=== PATIENT | female | born 1950 | race Caucasian/White ===

== ENCOUNTER 2020-02-17 12:58 | Outpatient (CLI) | payer MEDICARE, SELFPAY | END 2020-02-17 12:59 | disposition home or self-care (01) | PROVIDERS: PCP Family Medicine Sports Medicine; Visit Provider Otolaryngology | DX: H69.80 Other specified disorders of Eustachian tube, unspecified ear (principal); H93.8X9 Other specified disorders of ear, unspecified ear | CPT/HCPCS: 92557; 92567 ==

== ENCOUNTER 2020-03-26 14:00 | Outpatient (CLI) | payer MEDICARE, SELFPAY ==
--- NOTE | ~2020-03-26 | DEXA_ITS ---
Bone Density Report Name: Lizzette Adamson Age: 70 Sex: Female Ethnicity: White Date of : 1950 Indication: osteopenia; monitoring treatment; parental hip fracture; height loss; cancer; Referring Provider: SERGIO LAGOS Study: Bone densitometry was performed. Exam Date: March 26, 2020 Accession number: [id number] Bone Density: Region BMD T-score Z-score Classification AP Spine (L1-L4) 0.911 -1.2 0.9 Osteopenia Femoral Neck (Left) 0.699 -1.4 0.5 Osteopenia Total Hip (Left) 0.772 -1.4 0.1 Osteopenia Total Hip Bilateral Avg 0.810 -1.1 0.4 Osteopenia Femoral Neck (Right) 0.662 -1.7 0.1 Osteopenia Total Hip (Right) 0.847 -0.8 0.7 Normal World Health Organization criteria for BMD impression classify patients as: Normal (T-score at or above -1.0), Osteopenia (T-score between -1.0 and -2.5), or Osteoporosis (T-score at or below -2.5). 10-year Fracture Risk: FRAX not reported because: Treated for osteoporosis Previous Exams: Region Exam Age BMD T-score BMD Change BMD Change Date g/cm2 vs Baseline vs Previous AP Spine(L1-L4) 03/26/2020 70 0.911 -1.2 0.029(3.3%)# -0.022(-2.4%) 03/08/2018 68 0.933 -1.0 0.052(5.9%)# 0.031(3.5%)* 02/22/2016 66 0.902 -1.3 0.020(2.3%)# 0.040(4.7%)# 02/17/2013 63 0.861 -1.7 -0.020(-2.3%)# -0.020(-2.3%)# 02/07/2011 61 0.881 -1.5 Total Hip(Left) 03/26/2020 70 0.772 -1.4 0.002(0.2%)# -0.005(-0.6%) 03/08/2018 68 0.777 -1.4 0.007(0.9%)# 0.004(0.5%) 02/22/2016 66 0.773 -1.4 0.003(0.3%)# 0.003(0.4%)# 02/17/2013 63 0.770 -1.4 -0.001(-0.1%)# -0.001(-0.1%)# 02/07/2011 61 0.771 -1.4 Total Hip(Right) 03/26/2020 70 0.847 -0.8 0.061(7.7%)# -0.036(-4.1%)* 03/08/2018 68 0.883 -0.5 0.097(12.3%)# 0.060(7.3%)* 02/22/2016 66 0.823 -1.0 0.037(4.7%)# -0.018(-2.2%)# 02/17/2013 63 0.841 -0.8 0.055(7.0%)# 0.055(7.0%)# 02/07/2011 61 0.786 -1.3 *Denotes significance at 95% confidence level, LSC for AP Spine = 0.022 g/cm2, LSC for Total Hip = 0.027 g/cm2 Clinical Information Provided by Patient: Parent has had a hip fracture Is being treated for osteoporosis Has used the following medications: Vitamin D, Calcium Has the following medical conditions: Cancer Patient maximum height was 62 Menopause Age: 52 Drinks caffeinated beverages Onset of menses at age 15 Number of children 2 Impression: The patient has low bon
--- NOTE | ~2020-03-26 | MM_ITS ---
EXAMINATION: MM screening mammo BI HISTORY: Screening mammogram TECHNIQUE: Craniocaudal and mediolateral oblique 3-D tomosynthesis images were obtained and synthetic 2-D images were generated. CAD analysis was submitted and interpreted. COMPARISON: 03/15/2019 bilateral diagnostic digital mammogram and limited right breast ultrasound 03/08/2018 bilateral digital screening mammogram 04/03/2015, 03/30/2014, 03/23/2012 bilateral digital screening mammogram examinations BREAST PARENCHYMAL COMPOSITION: The breasts are heterogeneously dense, which may obscure small masses . FINDINGS: Stable fibroglandular asymmetry. Some asymmetry noted on MLO view in the mid to lower right breast appears identical to 04/03/2015. There is no evidence of suspicious mass, calcification, or in terval architectural distortion to suggest malignancy in either breast. There has been no suspicious interval change. IMPRESSION: 1. No mammographic evidence of malignancy. 2. Recommend routine screening mammography in one year. BI-RADS Category 2: Benign finding(s). Reviewed, dictated and finalized at location A. 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
== END 2020-03-26 14:01 | disposition home or self-care (01) ==
LOC: ANHIMG 14:03
PROVIDERS: PCP Family Medicine Sports Medicine; Visit Provider Obstetrics & Gynecology
DX: Z12.31 Encounter for screening mammogram for malignant neoplasm of breast (principal); Z78.0 Asymptomatic menopausal state; M85.88 Other specified disorders of bone density and structure, other site; M85.852 Other specified disorders of bone density and structure, left thigh; M85.851 Other specified disorders of bone density and structure, right thigh
CPT/HCPCS: 77067; 77080

== ENCOUNTER 2021-05-06 14:35 | Outpatient (CLI) | payer MEDICARE, SELFPAY ==
--- NOTE | ~2021-05-06 | MM_ITS ---
EXAMINATION: MM screening valery BI w jacqueline HISTORY: Screening TECHNIQUE: Craniocaudal and mediolateral oblique 3-D tomosynthesis images were obtained and synthetic 2-D images were generated. CAD analysis was submitted and interpreted. COMPARISON: Comparison to multiple prior studies sequentially, with oldest reviewed study dated 07/2013. BREAST PARENCHYMAL COMPOSITION: The breasts are heterogenously dense, which may obscure small masses FINDINGS: The left breast is stable without evidence for malignancy. There is subtle architectural di stortion in the lower aspect of the right breast on MLO view. IMPRESSION: 1. Architectural distortion of the right breast inferiorly. 2. Additional mammographic views and possible breast ultrasound are recommended. BI-RADS Category 0: Incomplete: Needs additional imaging evaluation. Reviewed, dictated and finalized at location A. 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 Architectural distortion of the right breast inferiorly. 2. Additional mammographic views and possible breast ultrasound are recommended . BI-RADS Category 0: Incomplete: Needs additional imaging evaluation.
== END 2021-05-06 14:36 | disposition home or self-care (01) ==
LOC: ANHIMG 14:38
PROVIDERS: PCP Family Medicine Sports Medicine; Visit Provider Obstetrics & Gynecology
DX: Z12.31 Encounter for screening mammogram for malignant neoplasm of breast (principal); R92.8 Other abnormal and inconclusive findings on diagnostic imaging of breast
CPT/HCPCS: 77063; 77067

== ENCOUNTER 2021-05-23 11:18 | Outpatient (CLI) | payer MEDICARE, SELFPAY ==
--- NOTE | ~2021-05-23 | MM_ITS ---
EXAMINATION: MM diagnostic valery RT w jacqueline HISTORY: Possible right breast architectural distortion TECHNIQUE: Additional 3-D tomosynthesis images of the right breast were performed and synthetic 2-D i mages were generated. CAD analysis was submitted and interpreted. COMPARISON: 05/06/2021 03/26/2020, 03/15/2019 03/08/2019 FINDINGS: There is a return to baseline fibroglandular appearance with spot compression of the right breast in the area questioned on screening mammogram. IMPRESSION: 1. No mammographic evidence of malignancy. 2. Recommend routine screening mammography in one year. BI-RADS Category 1: Negative Reviewed, dictated and finalized at location A. 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
== END 2021-05-23 11:19 | disposition home or self-care (01) ==
PROVIDERS: PCP Family Medicine Sports Medicine; Visit Provider Obstetrics & Gynecology
DX: R92.8 Other abnormal and inconclusive findings on diagnostic imaging of breast (principal)
CPT/HCPCS: 77061; 77065; G0279

== ENCOUNTER 2022-07-24 08:51 | Outpatient (CLI) | payer MEDICARE, SELFPAY ==
--- NOTE | ~2022-07-24 | MM_ITS ---
EXAMINATION: MM screening valery BI w jacqueline HISTORY: Screening TECHNIQUE: Craniocaudal and mediolateral oblique 3-D tomosynthesis images were obtained and synthetic 2-D images were generated. CAD analysis was submitted and interpreted. COMPARISON: Comparison to multiple prior studies sequentially, with oldest reviewed study dated 02/25. BREAST PARENCHYMAL COMPOSITION: The breasts are heterogeneously dense, which may obscure small masses FINDINGS: There is no evidence of suspicious mass, calcification, or architectural distortion to sugg est malignancy in either breast. There has been no suspicious interval change. IMPRESSION: 1. No mammographic evidence of malignancy. 2. Recommend routine screening mammography in one year. BI-RADS Category 1: Negative Reviewed, dictated and finalized at location A.
--- NOTE | ~2022-07-24 | DEXA_ITS ---
Bone Density Report Name: MYNOR MORSE Age: 72 Sex: Female Ethnicity: White Date of : 1950 Indication: postmenopausal; screening for osteoporosis; parental hip fracture; height loss; cancer; Referring Provider: SERGIO LAGOS Study: Bone densitometry was performed. Exam Date: July 24, 2022 Accession number: [id number] Bone Density: Region BMD T-score Z-score Classification AP Spine(L1-L4) 0.946 -0.9 1.3 Normal Femoral Neck (Left) 0.674 -1.6 0.4 Osteopenia Total Hip (Left) 0.762 -1.5 0.2 Osteopenia Femoral Neck (Right) 0.676 -1.6 0.4 Osteopenia Total Hip (Right) 0.836 -0.9 0.8 Normal Total Hip Mean 0.799 -1.2 0.5 Osteopenia World Health Organization criteria for BMD impression classify patients as: Normal (T-score at or above -1.0), Osteopenia (T-score between -1.0 and -2.5), or Osteoporosis (T-score at or below -2.5). 10-year Fracture Risk(1): Major Osteoporotic Fracture 17% Hip Fracture 5.5% Reported Risk Factors: [place] (), Neck BMD=0.674, BMI=25.0, parental fracture (1) FRAX(R) Version 3.08. Fracture probability calculated for an untreated patient. Fracture probability may be lower if the patient has received treatment. Clinical Information Provided by Patient: Parent has had a hip fracture Has used the following medications: Calcium Has the following medical conditions: Cancer Patient maximum height was 62 Menopause Age: 52 Drinks caffeinated beverages Onset of menses at age 17 Number of children 2 Impression: The patient has low bone mass, based on the Left Femoral Neck T-score. The patient has an estimated ten-year risk of hip fracture of 5.5% and an estimated ten-year risk of major fracture of 17%, based on the WHO FRAX algorithm. The patient has risk factors, including: parental hip fracture. Discussion: BONE DENSITY IS LOW AT ONE OR MORE SKELETAL SITES. THE PATIENT'S BMD AND CLINICAL RISK FACTORS CONTRIBUTE TO THIS PATIENT'S INCREASED RISK OF FRACTURE. This patient's lowest T-score is low at one or more skeletal sites. It meets the World Health Organization's (WHO) criteria for ?low bone mass? (T-score between -1.0 and -2.5). The patient's 10-year risk of hip fracture as calculated by FRAX exceeds the threshold where pharmacological therapy is recommended by the National Osteoporosis Foundation (NOF). However, all treatment decisions require clinical judgment and consideration of individual patient factors, including patient preferences, comorbidities, previous drug use, risk factors not captured in the FRAX model (e.g., frailty, falls, vitamin D deficiency, increased bone turnover, interval significant decline in bone density) and possible under or overestimation of fracture risk by FRAX. The patient should follow a healthful lifestyle (good
== END 2022-07-24 08:52 | disposition home or self-care (01) ==
PROVIDERS: PCP Family Medicine Sports Medicine; Visit Provider Obstetrics & Gynecology
DX: Z12.31 Encounter for screening mammogram for malignant neoplasm of breast (principal); Z78.0 Asymptomatic menopausal state; M85.852 Other specified disorders of bone density and structure, left thigh; M85.851 Other specified disorders of bone density and structure, right thigh
CPT/HCPCS: 77063; 77067; 77080

== ENCOUNTER 2023-01-23 13:10 | Observation (INO) | payer MEDICARE, SELFPAY ==
[2023-01-23] VITALS (22 sets, daily range): BP systolic 134–156; BP diastolic 60–87; PULSE 59–70; RESP 12–23; TEMP 36.5–36.9; O2SAT 97–100; BMI 26.6
--- NOTE | ~2023-01-23 | CT_ITS ---
EXAMINATION: CTA BRAIN/CAROTID DATE: 01/23/2023 16:02 INDICATION: Headache. Left arm weakness. Aphasia. TECHNIQUE: Computed tomographic angiography (CTA) of the head and neck was performed with 100 mL Omni paque-350 intravenous contrast. Multiplanar reconstructions and maximum intensity projection 3D-recon structions of the carotid arteries and of the intracranial arteries were created by the technologist on a separate workstation. Precontrast CT of the head was also obtained. Automated exposure control and iterative reconstruction technique were employed.The dose-length product was 1901.25 mGy-cm. COMPARISON: None. FINDINGS: Carotid arteries: Visualized portion of the aortic arch and great vessels arising from the arch are normal in caliber w ith no evident atherosclerotic plaque or dissection. There is 0% stenosis of the right carotid bulb r elative to normal distal artery lumen diameter (NASCET criteria). There is 0% stenosis of the left ca rotid bulb relative to normal distal artery lumen diameter. Bilateral vertebral arteries are codomina nt and patent throughout. Mild dependent atelectasis in the visualized upper lungs. Visualized cervic al soft tissues and superior mediastinum are normal. Moderate to severe cervical spondylosis with mil d reversal of the normal cervical lordosis. Head: No acute intracranial hemorrhage, acute infarction or abnormal extra axial fluid collection. There ar e symmetric mild enlargement of the left and right lateral and third ventricles which is disproportio jose alejandro to the normal sized fourth ventricle and with only mild increased prominence of the sylvian fiss ures which could be related to central predominant atrophy but could also be seen with normal pressur e hydrocephalus. The cerebral aqueduct of Sylvius remains patent. Basal cisterns are patent. No mass/ mass effect. There is mild scattered white matter hypoattenuation consistent with chronic small vesse l ischemic disease. Changes of left intraocular lens replacement. Mild mucosal thickening bilateral e thmoid sinuses. The bilateral mastoid air cells and middle ear cavities are clear. Intracranial arteries Minimal atherosclerotic plaque without hemodynamically significant stenosis at the bilateral carotid siphons. There is no hemodynamically significant stenosis in the vertebral, basilar and internal becerril tid arteries. Vertebral arteries are codominant. There are no aneurysms identified. Both A1 and P1 s egments are patent. Cerebral arterial arborization appears symmetric. IMPRESSION: 1. No evident atherosclerotic plaque with 0% stenosis of the right and left carotid bulbs relative to normal distal artery lumen diameter (NASCET criteria). 2. Minimal atherosclerotic plaque at the bilateral carotid siphons. Otherwise unremarkable cerebral C T angiogram with no mammographic significant stenosis or aneurysm. 3. Disproportionate increased size of the third and left and right lateral ventricles which could be related to central predominant atrophy but could also be seen in setting of normal pressure hydroceph alus (NPH: clinical triad ataxia/gait disturbance, dementia, urinary incontinence). 4. Nonspecific mild white matter hypoattenuation consistent with chronic small vessel ischemic diseas e. Reviewed, dictated and finalized at location A. IMPRESSION: 1. No evident atherosclerotic plaque with 0% stenosis of the right and left car otid bulbs relative to normal distal artery lumen diameter (NASCET criteria). 2. Minimal atherosclerotic plaque at the bilateral carotid siphons. Otherwise u nremarkable cerebral CT angiogram with no mammographic significant stenosis or aneurysm. 3. Disproportionate increased size of the third and left and right lateral vent ricles which could be related to central predominant atrop
--- NOTE | ~2023-01-23 | MR_ITS ---
EXAMINATION: MR brain/brain stem wo/w con DATE: 01/24/2023 08:48 INDICATION: TIA TECHNIQUE: Magnetic resonance imaging (MRI) of the brain and brainstem was performed without and with 12 mL MultiHance intravenous contrast. Sequences included sagittal and axial T1-weighted SE, axial d iffusion-weighted FS EPI ASSET, axial T2*-weighted GRE, axial T2-weighted FLAIR Propeller, and axial T2-weighted Propeller. Postcontrast axial and coronal T1-weighted SE was obtained. Apparent diffusion coefficient (ADC) maps were created. COMPARISON: CTA brain carotid 01/23/2023. FINDINGS: No abnormal restricted diffusion to suggest acute ischemic infarct. No MRI evidence of hemorrhage or extra-axial collection. No suspicious foci of susceptibility to suggest prior intraparenchymal hemorr shivani. Scattered foci of white matter hyperintensity, likely representing mild small vessel ischemic d isease. Prominent lateral and third ventricles. The basilar cisterns are patent. Flow voids are prese rved. Ethmoid mucosal thickening, the remaining aerated spaces are within normal limits. Left lens re placement. Globes and orbital contents are otherwise within normal limits. No abnormal enhancing lesi on IMPRESSION: No MR evidence of acute infarct. Prominent lateral and third ventricles, may be secondary to central predominant atrophy or normal pre ssure hydrocephalus, depending on the clinical context. Reviewed, dictated and finalized at location K. IMPRESSION: No MR evidence of acute infarct. Prominent lateral and third ventricles, may be secondary to central predominant atrophy or normal pressure hydrocephalus, depending on the clinical context.
--- NOTE | 2023-01-23 14:47 | ECG_ITS ---
Measurements Intervals [place] Rate: 59 P: 57 [place]: 166 QRS: -34 QRSD: 88 T: 141 QT: 444 QTc: 441 Interpretive Statements SINUS BRADYCARDIA LEFT AXIS DEVIATION RSR' IN V1 OR V2, PROBABLY NORMAL VARIANT BORDERLINE R WAVE PROGRESSION, ANTERIOR LEADS ST-T WAVE ABNORMALITY IN ANT/HIGH LAT LEADS- CONSIDER ISCHEMIA BASELINE ARTIFACT- V5-V6 ABNORMAL ECG NO PREVIOUS ECG AVAILABLE FOR COMPARISON Electronically Signed On 01-23-2023 15:21:34 CDT by Parish Cohen D.O.
--- NOTE | 2023-01-23 15:02 | ED.HA ---
HPI - Headache General Chief Complaint: Headache Stated Complaint: headache Time Seen by Provider: 01/23/23 14:13 History of Present Illness HPI Narrative: Patient is a 72-year-old female with a history of hypertension, hypothyroidism presenting with left-sided weakness. Patient states that she has had a persistent headache for the last week. She has been using Zyrtec and Aleve with intermittent relief. States that this morning she had an episode where her left hand did not seem to be working. States that she kept dropping things. Her states that she seemed confused at this time and started stuttering. States that she was struggling to get her words out. This episode lasted 15 to 20 minutes before resolving. Currently, she complains of a persistent frontal headache but denies further complaints. No recent fevers, vision changes, vertigo, chest pain, shortness of breath, abdominal pain, nausea or vomiting, diarrhea, dysuria, leg swelling. Related Data Home Medications Medication Instructions Recorded Confirmed citalopram 20 mg tablet 20 mg PO DAILY 03/10/19 01/23/23 multivitamin (Daily Multi-Vitamin 1 tablet PO DAILY 03/10/19 01/23/23 tablet) atenolol 25 mg tablet 12.5 mg PO DAILY 02/14/20 01/23/23 ezetimibe 10 mg tablet 10 mg PO DAILY 02/18/21 01/23/23 levothyroxine 25 mcg capsule 50 mcg PO DAILY 02/18/21 01/23/23 calcium carb 300 mg-D3 20 mcg-mag 1 tablet PO DAILY 05/20/22 01/23/23 ox 25 mg-copy messenger 0.5 [id number] tablet (Caltrate-D3 Plus Minerals) diclofenac sodium 75 mg 75 mg PO BID 01/23/23 01/23/23 tablet,delayed release Allergies Allergy/AdvReac Type Severity Reaction Status Date / Time No Known Allergies Allergy Verified 05/20/22 08:51 Review of Systems Review of Systems: All systems reviewed & are unremarkable except as noted in HPI and below PMFSH Past Medical History Medical History (Updated 01/29/23 @ 00:23 by Eugenia Cordova MD) Anxiety Lamin disease Depression Hypertension Rectal cancer Skin cancer Stroke-like symptoms TIA (transient ischemic attack) Surgical History Surgical History History of delivery x 2 Family History Family History Grandparent Carcinoma of colon Social History Social History Smoking status: Never smoker Second hand tobacco smoke exposure: No Alcohol intake: current Drinks per week: 2 Substance use: never Substance use type: does not use Lack of Transportation: No Lack of Food: Never True Current Housing: I Have Housing Concerned About Future Housing: No Difficulty Paying Gas/Electric Bills: No Difficulty Paying for Meds: No Currently Unemployed: No Education: Associate Degree Difficulty w/ Childcare or Family Care: No Spiritual care concerns: No Exam Narrative: GENERAL: Well-appearing and in no acute distress. HEAD: Normocephalic, atraumatic. EYES: PERRLA and EOMI. ENT: Nares clear, no rhinorrhea or epistaxis. Mucous membranes moist. NECK: Supple. CHEST: Clear to auscultation. No respiratory distress. HEART: Regular rate and rhythm ABDOMEN: Soft, nontender, nondistended EXTREMITIES: Normal range of motion. No edema. SKIN: Warm, dry, no rash. NEURO: Alert and oriented x3. 5 out of 5 strength in all extremities, no sensory deficits, no facial droop, no aphasia or dysarthria, no pronator drift, [id number] intact PSYCH: Normal mood and affect. Course Vital Signs Vital signs: Vital Signs Temperature 97.7 F 01/23/23 13:16 Pulse Rate 68 01/23/23 13:16 Respiratory Rate 17 01/23/23 13:16 Blood Pressure 154/81 H 01/23/23 13:16 Pulse Oximetry 97 01/23/23 13:16 Oxygen Delivery Room Air 01/23/23 13:16 Temperature 96.8 F L 01/25/23 08:00 Pulse Rate 65 01/25/23 12:01 Respiratory Rate 14
[2023-01-23 15:11] LABS: Basophils Percent Auto 0.7 % (0.2-1.2); Eosinophils Absolute Auto 0.2 K/mm3 (0-0.3); Eosinophils Percent Auto 2.4 % (0-4.4); Hematocrit 42.7 % (37.0-47.0); Hemoglobin 14.2 g/dL (12.0-15.0); Immature Granulocyte Absolute 0.01 K/mm3 (0.00-0.031); Immature Granulocyte Percent A 0.2 % (0-0.5); Lymphocytes Absolute Auto 1.17 K/mm3 (0.9-3.2); Mean Corpuscular HGB Conc 33.3 g/dl (32-36); Mean Corpuscular Hemoglobin 30.9 pg (26-34); Mean Platelet Volume 10.6 fl (7.4-10.4); Monocytes Absolute Auto 0.5 K/mm3 (0.1-0.6); Monocytes Percent Auto 8.8 % (2.6-8.5); Neutrophils Absolute Auto 4.2 K/mm3 (1.3-6.7); Neutrophils Percent Auto 68.9 % (45.5-73.1); Platelet Count Result 202 k/mm3 (150-375); Red Blood Count 4.59 M/mm3 (4.2-5.4); Red Cell Distribution Width 13.8 % (11.5-14.5); White Blood Count 6.2 K/mm3 (4.5-10.0)
[2023-01-23 15:41] LABS: Alanine Aminotransferase 33 U/L (6-35); Albumin Level 4.5 g/dL (3.5-5.1); Alkaline Phosphatase 58 U/L (38-126); Anion Gap 6 mmol/L (8-16); Aspartate Amino Transferase 30 U/L (14-36); Bilirubin,Total 0.8 mg/dL (0.2-1.3); Blood Urea Nitrogen 15 mg/dL (7-17); Calcium 9.5 mg/dL (8.4-10.2); Carbon Dioxide 30 mmol/L (22-30); Chloride 101 mmol/L (98-107); Estimated CRCL calculation 42 ml/min; Estimated Glomerular Filt Rate > 60; Glucose 121 mg/dL (65-110); Potassium 3.8 mmol/L (3.4-5.0); Sodium 137 mmol/L (137-145)
[2023-01-23] MEDS: KETOROLAC 15 MG/ML VIAL (*BKC) IV PUSH (15:44)
[2023-01-23] MEDS: diphenhydrAMINE HCl INJ 50 MG/ML VIAL 25 MG IV PUSH (15:44)
[2023-01-23] MEDS: PROCHLORPERAZINE EDISYLATE 10 MG/2 ML VIAL IV PUSH (15:44)
--- NOTE | 2023-01-23 15:44 | ECG_ITS ---
Measurements Intervals [place] Rate: 60 P: 51 MA: 167 QRS: -35 QRSD: 104 T: 145 QT: 406 QTc: 408 Interpretive Statements SINUS RHYTHM LEFT AXIS DEVIATION INCOMPLETE RIGHT BUNDLE BRANCH BLOCK ST-T WAVE ABNORMALITY IN ANTEROLAT/HIGH LAT LEADS- CONSIDER ISCHEMIA BASELINE ARTIFACT- I, III, AVR, AVL, AVF ABNORMAL ECG COMPARED TO ECG 01/23/2023 15:16:41 SINUS RHYTHM NOW PRESENT Electronically Signed On 01-23-2023 16:10:42 CDT by Parish Cohen D.O.
[2023-01-23] MEDS: SODIUM CHLORIDE 0.9% IV 1,000 ML 999 ML IV CONT (15:45)
[2023-01-23 15:52] LABS: Appearance Urine Clear (Clear); Bilirubin Urine Negative (Negative); Blood Urine Negative (Negative); Color Urine Yellow (Yellow); Glucose Urine UA Negative (Negative); Ketones Urine Negative (Negative); Leukocyte Esterase Ur Negative LEU/UL (Negative); Nitrate Urine Negative (Negative); Protein Urine Negative (Negative); Specific Grav Ur 1.009 (1.001-1.035); Urobilinogen Urine 0.2 mg/dL (<2.0)
[2023-01-23 16:12] LABS: Add Urine Microscopic? NO
[2023-01-23 16:28] LABS: Influenza A QL RT-PCR Negative (Negative); Influenza B QL RT-PCR Negative (Negative); SARS-CoV-2 RNA PCR Negative (Negative)
--- NOTE | 2023-01-23 23:33 | PM.IMHP ---
H&P: HPI History of Present Illness Date/Time: 01/23/23 23:33 Chief Complaint: Patient brought to the ER for evaluation of left-sided weakness which has now resolved Narrative: She is a pleasant 72 years old white female with chronic medical issues who is complaining of persistent headaches for the last week. She has been using Zyrtec and Aleve with some improvement. She had an episode this morning where her left hand did not seem to be working and she kept dropping things. She also appeared confused, started stuttering and was struggling to get her words out. This episode lasted 15-20 minutes and resolved on its own. EMS was called and patient was brought to the ER for evaluation. Workup was done which ruled out acute stroke. She is being admitted under observation for Neurology evaluation for her stroke-like symptoms /TIA. Review of Systems Review of Systems: she denies any chest pain, palpitations, fever rigor chills, nausea vomiting, abdominal pain or falls All systems reviewed & are unremarkable except as noted in HPI and below PMFSH Past Medical History Medical History (Updated 01/24/23 @ 00:55 by Venkata De Los Santos MD) Anxiety Lamin disease Depression Hypertension Rectal cancer Skin cancer Stroke-like symptoms TIA (transient ischemic attack) Surgical History Surgical History History of delivery x 2 Family History Family History Grandparent Carcinoma of colon Social History Social History Smoking status: Never smoker Second hand tobacco smoke exposure: No Alcohol intake: current Drinks per week: 2 Substance use: never Substance use type: does not use Lack of Transportation: No Lack of Food: Never True Current Housing: I Have Housing Concerned About Future Housing: No Difficulty Paying Gas/Electric Bills: No Difficulty Paying for Meds: No Currently Unemployed: No Education: Associate Degree Difficulty w/ Childcare or Family Care: No Spiritual care concerns: No Meds Home Medications and Allergies Home Medications Medication Instructions Recorded Confirmed Type citalopram 20 mg tablet 20 mg PO DAILY 03/10/19 01/23/23 History multivitamin (Daily Multi-Vitamin 1 tablet PO DAILY 03/10/19 01/23/23 History tablet) atenolol 25 mg tablet 12.5 mg PO DAILY 02/14/20 01/23/23 History ezetimibe 10 mg tablet 10 mg PO DAILY 02/18/21 01/23/23 History levothyroxine 25 mcg capsule 50 mcg PO DAILY 02/18/21 01/23/23 History calcium carb 300 mg-D3 20 mcg-mag 1 tablet PO DAILY 05/20/22 01/23/23 History ox 25 mg-copy messenger 0.5 [id number] tablet (Caltrate-D3 Plus Minerals) diclofenac sodium 75 mg 75 mg PO BID 01/23/23 01/23/23 History tablet,delayed release Allergies Allergy/AdvReac Type Severity Reaction Status Date / Time No Known Allergies Allergy Verified 05/20/22 08:51 Vital Signs Vital Signs - 24 hr 01/23/23 13:16 01/23/23 13:42 01/23/23 13:46 Temperature 36.5 C Pulse Rate 68 66 63 Respiratory Rate 17 21 H 23 H Blood Pressure 154/81 H 147/78 H Pulse Oximetry 97 97 98 Oxygen Delivery Room Air 01/23/23 13:51 01/23/23 14:00 01/23/23 14:01 Temperature Pulse Rate 65 63 64 Respiratory Rate 16 18 20 Blood Pressure 143/66 H 143/76 H Pulse Oximetry 98 Oxygen Delivery 01/23/23 14:15 01/23/23 14:16 01/23/23 14:30 Temperature Pulse Rate 65 64 62 Respiratory Rate 20 18 17 Blood Pressure 144/80 H 146/81 H Pulse Oximetry Oxygen Delivery 01/23/23 14:31 01/23/23 14:41 01/23/23 14:45 Temperature Pulse Rate 63 63 63 Respiratory Rate 19 13 20 Blood Pressure 146/81 H Pulse Oximetry 99 Oxygen Delivery 01/23/23 15:00 01/23/23 15:01 01/23/23 15:15 Temperature Pulse Rate 63 63 59 L Respiratory Rate 18 20 20 Blood Pressure 134/87 149/80 H Pul
[2023-01-24] VITALS (10 sets, daily range): BP systolic 127–152; BP diastolic 59–71; PULSE 54–74; RESP 12–20; TEMP 36.1–37; O2SAT 94–98
--- NOTE | 2023-01-24 | ECHO_ITS ---
Patient Info Name: Lizzette Adamson Age: 72 years : 1950 Gender: Female Ht: 61 in Wt: 130 lbs BSA: 1.60 m2 HR: 62 bpm Heart Rhythm: Sinus Rhythm Technical Quality: Fair Exam Date: 01/24/2023 2:28 PM Exam Location: [facility] Patient Status: Inpatient Admit Date: 01/23/2023 Staff Ordering Physician: Magno Xie MD Photo Retoucher: Dnonie Gerardo RDCS Attending Provider: Trudy Squires MD Exam Type: CA echo dop bubble study w con Study Info Indications - cva Complete two-dimentional, color flow and Doppler transthoracic echocardiogram is performed with agitated saline and with contrast to opacify the left ventricle and to improve the delineation of the left ventricle endocardial borders. Contrast/Agitated Saline Contrast/Ag. Saline: Definity Amount: 3.00 ml Summary 1. Technically difficult exam, definity contrast utilized. 2. Normal left ventricular size and systolic function. 3. Mildly sclerotic aortic valve which is not stenotic. 4. Saline contrast injection performed with poor visualization/no ability to comment on presence or absence of shunt. Left Ventricle Left ventricular chamber dimension is normal. Left ventricular systolic function is normal, estimated at 65-70%. The left ventricular diastolic function is grade I diastolic dysfunction. Right Ventricle Right ventricular chamber dimension is normal. Left Atria Left atrial chamber dimension is normal. Right Atria Right atrial chamber dimension is normal. Atrial Septum Intact interatrial septum visualized by agitated saline imaging. Aortic Valve The aortic valve is trileaflet. There is mild aortic valve sclerosis. Pulmonic Valve The pulmonic valve is not well visualized. Mitral Valve The mitral valve has normal leaflets. Tricuspid Valve The tricuspid valve leaflets are normal. Pericardium/Pleural The pericardium appears normal. Aorta The aortic root size at the sinus of Valsalva is normal. Left Ventricular Outflow Tract Name Value Normal LVOT 2D LVOT Diameter 1.9 cm LVOT Doppler LVOT Peak Gradient 4 mmHg LVOT Mean Gradient 2 mmHg LVOT VTI 20 cm LVOT VTI/AV VTI Ratio 0.6 LVOT Stroke Volume 57 ml LVOT CO 3.4 l/min LVOT CI 2.1 l/min/m2 Pulmonic Valve Name Value Normal RVOT Doppler RVOT Peak Gradient 2 mmHg PV Doppler PV Peak Gradient 2 mmHg Mitral Valve Name Value Normal MV Doppler
[2023-01-24] MEDS: LEVOTHYROXINE SODIUM 50 MCG TABLET PO (06:12)
[2023-01-24] MEDS: SODIUM CHLORIDE 0.9% IV 1,000 ML 75 ML IV CONT (06:13)
[2023-01-24 06:35] LABS: Basophils Percent Auto 0.7 % (0.2-1.2); Eosinophils Absolute Auto 0.2 K/mm3 (0-0.3); Eosinophils Percent Auto 3.7 % (0-4.4); Hematocrit 39.4 % (37.0-47.0); Hemoglobin 12.9 g/dL (12.0-15.0); Immature Granulocyte Absolute 0.02 K/mm3 (0.00-0.031); Immature Granulocyte Percent A 0.3 % (0-0.5); Lymphocytes Absolute Auto 1.48 K/mm3 (0.9-3.2); Mean Corpuscular HGB Conc 32.7 g/dl (32-36); Mean Corpuscular Hemoglobin 30.8 pg (26-34); Mean Platelet Volume 10.2 fl (7.4-10.4); Monocytes Absolute Auto 0.6 K/mm3 (0.1-0.6); Monocytes Percent Auto 10.5 % (2.6-8.5); Neutrophils Absolute Auto 3.6 K/mm3 (1.3-6.7); Neutrophils Percent Auto 59.8 % (45.5-73.1); Platelet Count Result 191 k/mm3 (150-375); Red Blood Count 4.19 M/mm3 (4.2-5.4); Red Cell Distribution Width 13.9 % (11.5-14.5); White Blood Count 5.9 K/mm3 (4.5-10.0)
[2023-01-24 07:04] LABS: Anion Gap 4 mmol/L (8-16); Blood Urea Nitrogen 14 mg/dL (7-17); Calcium 9.3 mg/dL (8.4-10.2); Carbon Dioxide 28 mmol/L (22-30); Chloride 105 mmol/L (98-107); Estimated CRCL calculation 47 ml/min; Estimated Glomerular Filt Rate > 60; Glucose 93 mg/dL (65-110); Potassium 4.2 mmol/L (3.4-5.0); Sodium 137 mmol/L (137-145)
[2023-01-24 08:09] LABS: Free T4 Free Thyroxine Reflex 1.11 ng/dL (0.78-2.19)
--- NOTE | 2023-01-24 08:41 | PCOTNOTE ---
Attempted OT evaluation. Patient off floor for MRI. Will continue to attempt.
[2023-01-24] MEDS: CITALOPRAM HYDROBROMIDE 20 MG TABLET PO (08:56)
[2023-01-24] MEDS: EZETIMIBE 10 MG TABLET PO (08:56)
[2023-01-24] MEDS: atenoloL 12.5 MG TABLET PO (08:56)
[2023-01-24] MEDS: THERAPEUTIC MULTIVITAMINS/MINERALS TAB (*BKC) 1 TABLET PO (08:57)
[2023-01-24] MEDS: CALCIUM/VITAMIN D 250 MG TABLET 1 TABLET PO (08:57)
[2023-01-24] MEDS: ATORVASTATIN 40 MG TABLET PO (08:57)
[2023-01-24] MEDS: ASPIRIN 81 MG CHEWABLE TABLET PO (08:59)
--- NOTE | 2023-01-24 09:56 | WPDNEURCNPN ---
Assessment and Plan Assessment and plan (1) Stroke-like symptoms: Code(s): R29.90 - Unspecified symptoms and signs involving the nervous system Status: Acute (2) TIA (transient ischemic attack): Code(s): G45.9 - Transient cerebral ischemic attack, unspecified Status: Acute (3) Hyperlipidemia: Code(s): E78.5 - Hyperlipidemia, unspecified Status: Acute (4) Hypertension: Code(s): I10 - Essential (primary) hypertension Status: Acute Plan Lizzette Adamson is a 72 year old female with a history of hypertension and hypothyroidism presenting due to concerns for TIA with symptoms of aphasia and right hand weakness. MRI brain is negative for acute stroke. - Continue aspirin 81mg daily - Continue Lipitor 40mg daily - She will need a surface echocardiogram with bubble study Consult date: 01/24/23 Reason for consult: Concern for TIA HPI: Lizzette Adamson is a 72 year old female with a history of hypertension and hypothyroidism presenting due to concerns for TIA. Patient reports having headache for the past week which she was treating with Armand and Jaiden. On the day of presentation, she had an episode where she felt as if her right hand was not working, and she kept dropping things. Her speech also appeared to be abnormal accordingly to her -- she seemed confused and was having difficulty getting her words out. The entire episode lasted about 15-20 minutes. EMS was called and patient was taken to [facility]. By the time she had gotten to the ED, her exam was completely normal with an NIH of 0. She complained of a persistent frontal headache. CT head was negative for any acute changes. Blood pressure has ranged from 130-150s systolic. Her EKG initially was read as sinus bradycardia but repeat was sinus rhythm. CTA brain showed no evidence of stenosis on the carotid arteries, but the third and lateral ventricles appear to be disproportionately enlarged. MRI brain is already done this morning -- on my preliminary read there is no evidence of acute stroke. She has been started on daily aspirin and Lipitor 40mg. Prior to this admission she was not taking any antiplatelets and only ezetimibe. Review of Systems Constitutional: Constitutional: Denies chills, Denies fever(s), Reports weakness and Denies weight loss Eyes: Eyes: Denies diplopia and Denies loss of vision ENT: Denies dizziness, Denies hearing loss and Denies tinnitus Cardiovascular: Cardiovascular: Denies chest pain, Denies syncope and Denies dyspnea Respiratory: Respiratory: Denies cough, Denies dyspnea and Denies wheezing Gastrointestinal: Gastrointestinal: Denies abdominal pain, Denies change in bowel habits and Denies vomiting Genitourinary: Genitourinary: Denies urinary incontinence Musculoskeletal: Musculoskeletal: Denies arthralgias and Denies joint swelling Integumentary/Breasts: Skin/Breast: Denies new lesions and Denies rash Neurologic: Reports as per HPI, Denies dizziness, Denies syncope, Reports headache(s) and Denies loss of vision Psychiatric: Psychiatric: Denies anxiety and Denies depression Endocrine: Endocrine: Denies cold intolerance and Denies heat intolerance Hematologic/Lymphatic: Hematologic/Lymphatic: Denies easy bleeding and Denies easy bruising Allergic/Immunologic: Allergic/Immunologic: Denies no additional allergic/immunologic complaints and Denies wheezing PMFSH Past Medical History Medical History (Updated 01/24/23 @ 10:03 by Jenny Acevedo MD) Anxiety Lamin disease Depression Hypertension Rectal cancer Skin cancer Stroke-like symptoms TIA (transient ischemic attack) Surgical History Surgical History History of delivery x 2 Family History Family History Grandparent Carcinoma of colon Social History Social History (Reviewed 01/24/23 @ 10:01 by Jenny Nina
--- NOTE | 2023-01-24 11:11 | PCSTNOTE ---
Bedside communication evaluation completed. Results within functional limits. Slightly decreased lingual strength on left but speech production unaffected. No further speech therapy is recommended for this patient. Thank you for the referral.
[2023-01-24] MEDS: PERFLUTREN LIPID MICROSPHERES 1.5 ML VIAL DILUTED TO 10 ML TOTAL VOLUME IV PUSH ×2 (14:53→15:20)
--- NOTE | 2023-01-24 15:43 | PM.IMPN ---
Progress Note: A&P Assessment and Plan (1) Stroke-like symptoms: Code(s): R29.90 - Unspecified symptoms and signs involving the nervous system Status: Acute Assessment and Plan: Patient presents with complaints of stuttering speech and left-sided weakness. CTA brain/ carotids ordered which ruled out any significant vascular stenosis or intracranial hemorrhage. It did show prominent size of the 3rd and lateral ventricles. Symptoms resolved. MRI of the brain and brainstem with and without contrast showed no acute CVA but did again show a prominent ventricles. Neurology has been consulted. Echocardiogram with bubble study has been ordered. Speech therapy evaluation was performed showing the patient can swallow safely. Will add aspirin and Lipitor. Discussed with Neurology about adding Plavix. No clinical evidence of NPH. Hold off on lumbar puncture. Will discuss with Neurology. PT and OT evaluation. (2) Cerebral ventriculomegaly: Code(s): G93.89 - Other specified disorders of brain Status: Acute Assessment and Plan: Noted on imaging. Patient without symptoms of NPH. As above. (3) Hypertension: Code(s): I10 - Essential (primary) hypertension Status: Acute Assessment and Plan: Patient's blood pressure was reviewed on 01/24 Blood pressure remains well controlled. Will continue current medications. Plan DVT prophylaxis - SCDs Code status - full Subjective Date/time seen: 01/24/23 15:43 Interval history: 72yo female with HTN, rectal CA and TIA here for stuttering speech and left sided weakness. Patient denies chest pain. Left sided weakness improved. Up ambulating. Stuttering improved. Toelrating oral intake. No ataxia or incontinence Exam Narrative: AF 96.9 127/65 66 20 96% ra Gen - NARD Chest - few basilar rhonchi o/w clear CV - RRR S1/S2. Tele showing no significant dysrhythmias Abd - Soft, NT/ND, Positive BS Ext - No pedal edema Neuro - Alert and oriented. Mild left UE weakness. speech clear Psych - Nml mood and affect Skin - Warm and dry Objective Data Vital Signs Vital Signs: Vital Signs - 24 hr 01/23/23 15:45 01/23/23 15:46 01/23/23 21:34 Temperature 98.4 F Pulse Rate 64 70 65 Respiratory Rate 18 15 12 Blood Pressure 151/75 H 156/60 H Pulse Oximetry 97 Oxygen Delivery 01/23/23 20:00 01/24/23 00:00 01/24/23 04:00 Temperature Pulse Rate 74 59 L Respiratory Rate Blood Pressure Pulse Oximetry 97 Oxygen Delivery Room Air 01/24/23 04:00 01/24/23 07:58 01/24/23 08:56 Temperature 97.4 F L 97.0 F L Pulse Rate 62 66 66 Respiratory Rate 12 20 Blood Pressure 138/59 L 152/71 H Pulse Oximetry 94 98 Oxygen Delivery 01/24/23 08:01 01/24/23 08:01 01/24/23 11:49 Temperature Pulse Rate 54 L Respiratory Rate 20 Blood Pressure Pulse Oximetry 98 Oxygen Delivery Room Air Room Air 01/24/23 12:00 01/24/23 12:03 Temperature 96.9 F L Pulse Rate 70 66 Respiratory Rate 20 Blood Pressure 127/65 Pulse Oximetry 96 Oxygen Delivery Intake/Output Intake/Output: Intake & Output 01/21/23 01/22/23 01/23/23 01/24/23 23:59 23:59 23:59 23:59 Intake Total 1000 1230 Output Total 1100 Balance 1000 130 Meds/Results Medications: Active Medications Generic Name Dose Route Start Last Admin Trade Name Freq PRN Reason Stop Dose Admin Acetaminophen 650 mg 01/24/23 01:20 Acetaminophen 325 Mg Tablet PO Q4H PRN Mild Pain (1-3) or Fever Al Hydrox/Mg Hydrox/Simethicone 30 ml 01/24/23 01:20 Mag Hydrox/Al Hydrox/Simeth 30 Ml Udc PO QID PRN Dyspepsia Aspirin 81 mg 01/24/23 08:00 01/24/23 08:59 Aspirin 81 Mg Chewable Tablet PO 81 mg DAILY@0800 ANAND Administration Atenolol 12.5 mg 01/24/23 09:00 01/24/23 08:56 Atenolol 12.5 Mg Tablet PO 12.5 mg DAILY ANAND Administration Atorvastatin Calcium 40 mg
[2023-01-24] MEDS: ACETAMINOPHEN 325 MG TABLET 650 MG PO (21:25)
[2023-01-25] VITALS (7 sets, daily range): BP systolic 106–151; BP diastolic 66–68; PULSE 57–69; RESP 14–20; TEMP 36–36.4; O2SAT 95–97
[2023-01-25] MEDS: LEVOTHYROXINE SODIUM 50 MCG TABLET PO (05:40)
[2023-01-25 07:20] LABS: Anion Gap 2 mmol/L (8-16); Blood Urea Nitrogen 13 mg/dL (7-17); Calcium 9.5 mg/dL (8.4-10.2); Carbon Dioxide 34 mmol/L (22-30); Chloride 104 mmol/L (98-107); Estimated CRCL calculation 42 ml/min; Estimated Glomerular Filt Rate > 60; Glucose 101 mg/dL (65-110); Magnesium 2.1 mg/dL (1.6-2.3); Phosphorus 3.9 mg/dL (2.5-4.5); Potassium 3.8 mmol/L (3.4-5.0); Sodium 140 mmol/L (137-145)
[2023-01-25] MEDS: CITALOPRAM HYDROBROMIDE 20 MG TABLET PO (08:29)
[2023-01-25] MEDS: atenoloL 12.5 MG TABLET PO (08:29)
[2023-01-25] MEDS: EZETIMIBE 10 MG TABLET PO (08:30)
[2023-01-25] MEDS: CALCIUM/VITAMIN D 250 MG TABLET 1 TABLET PO (08:30)
[2023-01-25] MEDS: THERAPEUTIC MULTIVITAMINS/MINERALS TAB (*BKC) 1 TABLET PO (08:31)
[2023-01-25] MEDS: ASPIRIN 81 MG CHEWABLE TABLET PO (08:31)
[2023-01-25] MEDS: ATORVASTATIN 40 MG TABLET PO (08:31)
--- NOTE | 2023-01-25 12:31 | PM.DS ---
DS: Admitting Diagnosis Discharge Date 01/25/23 Admitting Diagnosis Stuttering speech and left sided weakness DS: Discharge Diagnosis Discharge Diagnosis (1) TIA (transient ischemic attack): Code(s): G45.9 - Transient cerebral ischemic attack, unspecified Status: Acute (2) Stroke-like symptoms: Code(s): R29.90 - Unspecified symptoms and signs involving the nervous system Status: Acute (3) Cerebral ventriculomegaly: Code(s): G93.89 - Other specified disorders of brain Status: Acute (4) Hypertension: Code(s): I10 - Essential (primary) hypertension Status: Acute DS: Summary Hospital Course Reason for hospitalization: 72yo female with HTN, rectal CA and TIA here for stuttering speech and left sided weakness. Please see H&P for details. Hospital Course: Patient presents with complaints of stuttering speech and left-sided weakness. CTA brain/ carotids ordered which ruled out any significant vascular stenosis or intracranial hemorrhage.? It did show prominent size of the 3rd and lateral ventricles.? Symptoms resolved.? MRI of the brain and brainstem with and without contrast showed no acute CVA but did again show a prominent ventricles.? Neurology was consulted.and appreciate their input. Echo with bubble study showing difficult exam but EF 65-70%, grade I diastolic dysfunction.? Speech therapy evaluation was performed showing the patient can swallow safely.? We added aspirin and Lipitor (side effects discussed).? No clinical evidence of NPH.? She feels well today. No recurrence of symptoms. No CP, SOB, palpitations or cough. No n/v. Walking to the bathroom. Patient overall did well and was able to be discharged home on January 25. Status at Discharge Cognitive/behavioral status at discharge: stable Time Spent with Patient Time attestation: Total time spent providing and/or coordinating discharge services: 35 minutes Time spent: Greater than 30 minutes Exam Narrative: 96.8 151/66 69 14 96% ra Gen - NARD Chest - few faint crackles mid/lower lung willis o/w clear CV - RRR S1/S2. Tele showing no significant dysrhythmias Abd - Soft, NT/ND, Positive BS Ext - No pedal edema Neuro - Alert and oriented. Speech clear Psych - Nml mood and affect Skin - Warm and dry DS: Data Data Completed and Pending Labs on day of discharge: Labs from last 24 hours 01/25/23 06:47 Sodium 140 Potassium 3.8 Chloride 104 Carbon Dioxide 34 H Anion Gap 2 L BUN 13 Creatinine 0.90 Estim Creat Clear Calc 42 Estimated GFR > 60 Glucose 101 Calcium 9.5 Phosphorus 3.9 Magnesium 2.1 Discharge Plan Discharge Attending physician on discharge: Magno Xie Consulting providers: Jenny Acevedo Discharging Clinician: Magno Xie Anticipated Discharge Date/Time: 01/25/23 12:59 Patient Disposition: Home, Self-Care Activity: as tolerated Diet: heart healthy Discharge Instructions: Check blood pressure 1 to 2 times a day. Record and bring into your doctor for review. Call your doctor if your blood pressure is greater than 180/110. Take precautions to avoid falls. Rise slowly from a lying or sitting position. Pause before standing or walking. Contact your doctor or call 911 and come to the Emergency Room if you have weakness in an arm or leg or other worrisome symptoms. Avoid NSAIDs (ibuprofen, naproxen, Aleve). Tylenol is safe to take. Follow-up with your primary care provider in 1-2 weeks. Please call for appointment. Follow-up with Neurology as needed. Thank you for using [facility] for your health care needs. Patient Instructions: Antibiotic Form Stand Alone Forms: General Discharge Information Follow-up/Referrals: Russell,Arnulfo Solis MD [Primary Care Provider] - Call for Appointment Jenny Acevedo MD [Physician] - Discharge Medications: New atorvastatin 40 mg Tablet 40 mg PO DAILY Qt
--- NOTE | 2023-01-26 15:16 | IVDEFINITY ---
Prior to administration of IV Definity the patient was educated on the risks and benefits of the imaging enhancing agent including potential adverse side effects. The patient verbalized understanding. Allergies were verified. No exclusion criteria were identified and at least one of the following inclusion criteria were met: 1) physician request, 2) patient technically difficult to image (per the [place] [employer]chocardi[employer] guidelines of two or more segments not discernable within the apical view), or 3) questionable left ventricular function. ?
== END 2023-01-25 13:45 | disposition home or self-care (01) ==
LOC: ANHED 14:13 → ANH3MEDSUR 01-25 13:01
PROVIDERS: Admitting Provider Family Medicine; Emergency Provider Emergency Medicine; PCP Family Medicine Sports Medicine; Visit Provider Internal Medicine
DX: G45.9 Transient cerebral ischemic attack, unspecified (principal); R29.90 Unspecified symptoms and signs involving the nervous system; G93.89 Other specified disorders of brain; M26.609 Unspecified temporomandibular joint disorder, unspecified side; H91.90 Unspecified hearing loss, unspecified ear; E78.5 Hyperlipidemia, unspecified; I10 Essential (primary) hypertension; I35.8 Other nonrheumatic aortic valve disorders; E03.9 Hypothyroidism, unspecified; R51.9 Headache, unspecified; F41.9 Anxiety disorder, unspecified; F32.A Depression, unspecified; R94.31 Abnormal electrocardiogram [ECG] [EKG]; Z20.822 Contact with and (suspected) exposure to COVID-19; Z86.73 Personal history of transient ischemic attack (TIA), and cerebral infarction without residual deficits; Z85.048 Personal history of other malignant neoplasm of rectum, rectosigmoid junction, and anus; Z85.828 Personal history of other malignant neoplasm of skin; Z80.0 Family history of malignant neoplasm of digestive organs; F10.90 Alcohol use, unspecified, uncomplicated; Z79.899 Other long term (current) drug therapy
CPT/HCPCS: 36415; 70496; 70498; 70553; 80048; 80053; 81003; 82607; 83735; 84100; 84439; 84443; 84480; 85025; 87636; 92523; 93005; 96361; 96374; 96375; 97161; 97165; 99285; A9270; A9577; C8929; G0378; J0780; J1200; J1885; J7030; Q9957; Q9967

== ENCOUNTER 2023-03-11 01:39 | Day surgery (SDC) | payer MEDICARE, SELFPAY ==
--- NOTE | 2023-03-06 14:07 | PC.NURSE ---
Report to the Outpatient Waiting Room, entrance under the green pavilion located off [facility], at time 0800 on date _03/11/23 . Planned Procedure Time: __1000 . Time changes happen often and if your time is changed the preop area will call you the afternoon before. - You and your visitor will be asked to self-screen and do not enter if you have any COVID symptoms. - A mask is optional within the hospital at this time. Patients may have clear liquids (water, carbonated beverages, clear teas, apple juice) until 3 hours prior to surgery with a maximum of 20 ounces. - No food from midnight until time of surgery - Infants may have breast milk until 4 hours before surgery, infant formula 6 hours prior to surgery. - Children will be allowed to drink immediately following surgery. If applicable, please bring a bottle or sippy cup to assist with drinking. Juice, water, soda, and popsicles are readily available. For infants on formula, please bring formula the day of surgery. Pacifiers are allowed. Take the following medications with a SIP of water the morning of surgery: ____ATENOLOL,CITALOPRAM.LEVOTHYROXINE DO NOT STOP ANY OF YOUR OTHER PRESCRIPTION MEDICATIONS PRIOR TO SURGERY ?EXCEPT THE FOLLOWING Medications to discontinue per physician PT STATES PER DR MANDY MARCUM HOLD ASPIRIN. LAST DOSE 03/05/23. HOLD DICLOFENAC 7 DAYS PRE OP PER DR BULLOCK.LAST DOSE 03/03/23. HOLD MULTIVITAMIN 3 DAYS PRE OP.LAST DOSE 03/07/23 Please no make-up, nail portuguese, hairspray, perfume, deodorant, or body powder the day of surgery. No jewelry (including any body piercings) or valuables the day of surgery, leave them at home. Please take a shower or bath the night before, or the morning of, surgery with an antibacterial soap. Wear comfortable, loose fitting clothing. Children are encouraged to wear pajamas. - Jewelry must be removed prior to entering the operating room. Rings and piercings that are not removed may be cut off. - The hospital will not accept responsibility for valuables. - Please leave all valuables, including medications, at home the day of surgery. If you are going home after surgery, a licensed local company refrigerated truck driver must drive you home. - NO public transportation without another adult if you receive anesthesia. - We recommend that an adult stay with you for 24 hours following discharge. - We also recommend that you do not drive, make important decision, drink alcoholic beverages, or take any drugs that were not prescribed by your health care provider for at least 24 hours after your discharge time. For Pediatric surgeries, we recommend two adults accompany the child home. Follow any additional instructions given to you from your surgeon. If you or anyone in your household have experienced Covid symptoms in the past week, please notify your surgeon or the nurse liaison at the phone number below for possible testing. Telephone instructions given to __PATIENT and asked if any additional questions and then verbalized understanding. Patient advised to call surgeon office or pre surgery nurse liaison [phone] if any additional questions.
[2023-03-06 14:22] VITALS: BMI 25.1
--- NOTE | 2023-03-10 14:24 | PM.HPGS ---
History of Present Illness History of Present Illness Consent: Risks, benefits, and alternatives have been discussed and questions answered. Patient agrees to proceed with procedure. Chief complaint: left knee medial meniscal tear Narrative: Lizzette Adamson is a 73 year old female with knee pain left. She has catching locking and pain in the knee. She has a positive Arlette's mechanical symptoms. She has failed conservative treatment to date. [facility] Past Medical History Medical History Anxiety Lamin disease Depression Hypertension Rectal cancer Skin cancer Stroke-like symptoms TIA (transient ischemic attack) Surgical History Surgical History History of delivery x 2 Family History Family History Grandparent Carcinoma of colon Social History Social History (Updated 02/10/23 @ 13:32 by Renea Hunt CMA) Smoking status: Never smoker Second hand tobacco smoke exposure: No Alcohol intake: current Drinks per week: 2 Substance use: never Substance use type: does not use Lack of Transportation: No Lack of Food: Never True Current Housing: I Have Housing Concerned About Future Housing: No Difficulty Paying Gas/Electric Bills: No Difficulty Paying for Meds: No Currently Unemployed: No Education: Associate Degree Difficulty w/ Childcare or Family Care: No Living arrangements: with family Occupation/Education: retired Spiritual care concerns: No Meds Home Medications and Allergies Home Medications Medication Instructions Recorded Confirmed Type citalopram 20 mg tablet 20 mg PO DAILY 03/10/19 03/06/23 History multivitamin (Daily Multi-Vitamin 1 tablet PO DAILY 03/10/19 03/06/23 History tablet) atenolol 25 mg tablet 25 mg PO DAILY 02/14/20 03/06/23 History ezetimibe 10 mg tablet 10 mg PO DAILY 02/18/21 03/06/23 History levothyroxine 25 mcg capsule 50 mcg PO DAILY 02/18/21 03/06/23 History aspirin 81 mg chewable tablet 81 mg PO DAILY@0800 #30 tabs 01/25/23 03/06/23 Rx (Children's Aspirin) atorvastatin 40 mg tablet 40 mg PO DAILY #30 tabs 01/25/23 03/06/23 Rx diclofenac sodium 75 mg 75 mg PO BID 03/06/23 03/06/23 History tablet,delayed release Allergies Allergy/AdvReac Type Severity Reaction Status Date / Time No Known Allergies Allergy Verified 03/06/23 13:50 Exam Narrative: On examination she is tender medially over the joint line she has got a positive Arlette's mechanical catching of the knee. Neurologically she is intact she walks with a mild limp because of the pain. She has mild swelling in the joint pain with any manipulation. Assessment and Plan Assessment and plan (1) Acute medial meniscus tear of left knee: Code(s): S83.242A - Other tear of medial meniscus, current injury, left knee, initial encounter Status: Acute Plan My impression patient has meniscal tear left knee. She has failed conservative treatment and continues to have mechanical symptoms of catching and locking. She she is tender medially over the joint line has pain to palpation manipulation. She walks with an antalgic gait and has pain with any motion. She would like to proceed with arthroscopy partial meniscectomy proceed as indicated I think this is a reasonable recommended treatment. Will proceed per her request.
[2023-03-11] VITALS (9 sets, daily range): BP systolic 121–147; BP diastolic 39–75; PULSE 54–74; RESP 14–20; TEMP 36.4–36.6; O2SAT 97–100
[2023-03-11] MEDS: ACETAMINOPHEN 500 MG TABLET 1000 MG PO (08:43)
--- NOTE | 2023-03-11 08:51 | WPDHPUPDATE1 ---
History and Physical Update Update Date/Time: 03/11/23 08:51 History and Physical has been reviewed, including an updated exam of the patient. There are NO changes in the patient's condition. Risks, benefits, and alternatives have been discussed and questions answered. Patient agrees to proceed with procedure.
--- NOTE | 2023-03-11 08:59 | WPDANESEPPF ---
Anes - Initial Pre Proc Eval Procedure: Operation Date: 03/11/23 10:00 Proposed Procedures p Left Knee Arthroscopy - Abdirahman Castro MD Date/Time: 03/11/23 08:59 Surgeon: Abdirahman Castro MD Pre Op Diagnosis: left knee medial meniscal tear Patient Data Age: 73 Gender: F Height: 1.55 m Weight: 60.35 kg Allergies Allergy/AdvReac Type Severity Reaction Status Date / Time No Known Allergies Allergy Verified 03/11/23 08:31 Home Medications Medication Instructions Recorded Confirmed Type citalopram 20 mg tablet 20 mg PO DAILY 03/10/19 03/11/23 History multivitamin (Daily Multi-Vitamin 1 tablet PO DAILY 03/10/19 03/11/23 History tablet) atenolol 25 mg tablet 25 mg PO DAILY 02/14/20 03/11/23 History ezetimibe 10 mg tablet 10 mg PO DAILY 02/18/21 03/11/23 History levothyroxine 25 mcg capsule 50 mcg PO DAILY 02/18/21 03/11/23 History aspirin 81 mg chewable tablet 81 mg PO DAILY@0800 #30 tabs 01/25/23 03/11/23 Rx (Children's Aspirin) atorvastatin 40 mg tablet 40 mg PO DAILY #30 tabs 01/25/23 03/11/23 Rx diclofenac sodium 75 mg 75 mg PO BID 03/06/23 03/11/23 History tablet,delayed release Patient hx anesthesia problems: none Family hx anesthesia problems: none Results Review: All pre-operative results and documents have been reviewed as part of the pre-operative evaluation. [facility] Past Medical History Medical History Anxiety Lamin disease Depression Hypertension Rectal cancer Skin cancer Stroke-like symptoms TIA (transient ischemic attack) Surgical History Surgical History History of delivery x 2 Family History Family History Grandparent Carcinoma of colon Social History Social History Smoking status: Never smoker Second hand tobacco smoke exposure: No Alcohol intake: current Drinks per week: 2 Substance use: never Substance use type: does not use Lack of Transportation: No Lack of Food: Never True Current Housing: I Have Housing Concerned About Future Housing: No Difficulty Paying Gas/Electric Bills: No Difficulty Paying for Meds: No Currently Unemployed: No Education: Associate Degree Difficulty w/ Childcare or Family Care: No Living arrangements: with family Occupation/Education: retired Spiritual care concerns: No Anes - Eval Final PreProcedure Day of Procedure 03/11/23 08:59 Patient weight: normal Heart: regular rate and rhythm Lungs: clear to auscultation Airway: Mallampati scale class II Neurological: alert and oriented Last oral intake: >/= 8 hours ASA classification: III Emergent: no Anesthetic plan: proceed Anesthesia type and monitoring: general LMA and standard monitoring Results Review: All pre-operative results and documents have been reviewed as part of the pre-operative evaluation. Informed Consent: The patient's anesthetic plan and its attendant risks and benefits were discussed with the patient/family/POA. Questions were solicited and answers provided to the satisfaction of the patient/family/POA.
[2023-03-11] MEDS: LACTATED RINGERS 1,000 ML 30 ML IV CONT (09:00)
[2023-03-11] MEDS: KETOROLAC 15 MG/ML VIAL (*BKC) IV PUSH (09:40)
[2023-03-11] MEDS: ceFAZolin 2 GM/D5W 50 ML 2 GM/50 ML BAG IVPB (09:47)
[2023-03-11] MEDS: LIDO 1%/EPINEPHRINE 1:100,000 20 ML VIAL INFILTRATE (10:11)
--- NOTE | 2023-03-11 10:25 | W.PM.PROC2 ---
Procedure Note - Detailed Date of Procedure 03/11/23 Pre-op Diagnosis left knee medial meniscal tear Post-op Diagnosis Same Procedure Performed LEFT knee arthroscopy with partial meniscetomy Surgeon Abdirahman Castro MD Anesthesia General Description of Procedure Patient brought to the operating room and anesthetic was administered. The knee was steriley prepped and drapped in the usual manner. Standard portals were used. Superior medial portal was used for the outflow cannula, inferior lateral portal was used for the scope, inferior medial portal was used for the instruments. Arthroscopy was performed, the patellar femoral joint showed grade 3 degenerative changes. The medial compartment showed a complex tear, and cgrade 2-3 chnges. The lateral compartment showed fraying. The ACL was intact. Using baskets and sakina the meniscal tear was trimmed back to a stable base so the nothing further could be pulled into the joint. Any loose or delaminated fragments were gently trimmed to a stable base. At this point the instruments were withdrawn, sutures placed and patient left the operating room in satisfactory condition. Estimated Blood Loss 20 Drains No Packing No Pathology None sent Complications No immediate complications Condition Stable Disposition PACU [facility] Billing Surgery - Charge Forward: Surgery Billing (Partial medial Menisectomy [id number])
== END 2023-03-11 12:30 | disposition home or self-care (01) ==
PROVIDERS: Visit Provider Orthopaedic Surgery
PROC: (CPT 29870; principal; 2023-03-11 10:00)
DX: M23.332 Other meniscus derangements, other medial meniscus, left knee (principal); M17.12 Unilateral primary osteoarthritis, left knee; I10 Essential (primary) hypertension; F41.9 Anxiety disorder, unspecified; F32.A Depression, unspecified; Z86.73 Personal history of transient ischemic attack (TIA), and cerebral infarction without residual deficits
CPT/HCPCS: 29881; A9270; J0690; J1885; J2250; J2405; J2704; J3010; J7120

== ENCOUNTER 2023-08-04 01:05 | Day surgery (SDC) | payer MEDICARE, SELFPAY ==
[2023-07-21 15:46] VITALS: BMI 26.0
--- NOTE | 2023-07-31 09:55 | SUR.PREOP ---
Patient called regarding upcoming procedure. Reviewed preop instructions, appointment times, and procedure prep.
[2023-08-04 06:33] VITALS: BP 151/71; PULSE 57; RESP 16; TEMP 36.4; O2SAT 98
[2023-08-04] MEDS: LACTATED RINGERS 1,000 ML 150 ML IV CONT (06:42)
--- NOTE | 2023-08-04 07:13 | WPDANESEPPF ---
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,rectosigmoid junction Patient Data Age: 73 Gender: F Height: 1.52 m Weight: 61.1 kg Last Vital Signs Temp 97.5 F L 08/04/23 06:33 Pulse 57 L 08/04/23 06:33 Resp 16 08/04/23 06:33 BP 151/71 H 08/04/23 06:33 Pulse Ox 98 08/04/23 06:33 O2 Del Method Room Air 08/04/23 06:33 Allergies Allergy/AdvReac Type Severity Reaction Status Date / Time No Known Allergies Allergy Verified 08/04/23 06:32 Home Medications Medication Instructions Recorded Confirmed Type citalopram 20 mg tablet 20 mg PO DAILY 03/10/19 07/21/23 History multivitamin (Daily Multi-Vitamin 1 tablet PO DAILY 03/10/19 07/21/23 History tablet) atenolol 25 mg tablet 25 mg PO DAILY 02/14/20 07/21/23 History ezetimibe 10 mg tablet 10 mg PO DAILY 02/18/21 07/21/23 History levothyroxine 25 mcg capsule 50 mcg PO DAILY 02/18/21 07/21/23 History aspirin 81 mg chewable tablet 81 mg PO DAILY@0800 #30 tabs 01/25/23 07/21/23 Rx (Children's Aspirin) atorvastatin 40 mg tablet 40 mg PO DAILY #30 tabs 01/25/23 07/21/23 Rx Patient hx anesthesia problems: none Family hx anesthesia problems: none Results Review: All pre-operative results and documents have been reviewed as part of the pre-operative evaluation. [facility] Past Medical History Medical History Anxiety Lamin disease Depression Hypertension Rectal cancer Skin cancer Stroke-like symptoms TIA (transient ischemic attack) Surgical History Surgical History History of arthroscopy of left knee 03/11/23-Dr Castro History of delivery x 2 Family History Family History Grandparent Carcinoma of colon Social History Social History Smoking status: Never smoker Second hand tobacco smoke exposure: No Alcohol intake: current Drinks per week: 2 Alcohol use details: couple times a week Substance use: never Substance use type: does not use Current Housing: Decline to Answer Concerned About Future Housing: Decline to Answer Difficulty Paying Gas/Electric Bills: Decline to Answer Difficulty Paying for Meds: Decline to Answer Currently Unemployed: Decline to Answer Education: Decline to Answer Difficulty w/ Childcare or Family Care: Decline to Answer Living arrangements: with family Occupation/Education: retired Spiritual care concerns: No Anes - Eval Final PreProcedure Day of Procedure 08/04/23 07:13 Patient weight: normal Heart: regular rate and rhythm Lungs: clear to auscultation Airway: Mallampati scale class II Neurological: alert and oriented Last oral intake: >/= 8 hours ASA classification: III Emergent: no Anesthetic plan: proceed Anesthesia type and monitoring: general GIVS and standard monitoring Results Review: All pre-operative results and documents have been reviewed as part of the pre-operative evaluation. Informed Consent: The patient's anesthetic plan and its attendant risks and benefits were discussed with the patient/family/POA. Questions were solicited and answers provided to the satisfaction of the patient/family/POA.
--- NOTE | 2023-08-04 07:31 | PM.HPGS ---
History of Present Illness History of Present Illness Consent: Risks, benefits, and alternatives have been discussed and questions answered. Patient agrees to proceed with procedure. Chief complaint: colon screen Narrative: Lizzette Adamson is a 73 year old female here for screening colonoscopy Review of Systems Review of Systems: All systems reviewed & are unremarkable except as noted in HPI and below PMFSH Past Medical History Medical History (Updated 08/04/23 @ 07:31 by Beau Cullen MD) Anxiety Lamin disease Colon cancer screening Depression Hypertension Rectal cancer Skin cancer Stroke-like symptoms TIA (transient ischemic attack) Surgical History Surgical History History of arthroscopy of left knee 03/11/23-Dr Castro History of delivery x 2 Family History Family History Grandparent Carcinoma of colon Social History Social History Smoking status: Never smoker Second hand tobacco smoke exposure: No Alcohol intake: current Drinks per week: 2 Alcohol use details: couple times a week Substance use: never Substance use type: does not use Current Housing: Decline to Answer Concerned About Future Housing: Decline to Answer Difficulty Paying Gas/Electric Bills: Decline to Answer Difficulty Paying for Meds: Decline to Answer Currently Unemployed: Decline to Answer Education: Decline to Answer Difficulty w/ Childcare or Family Care: Decline to Answer Living arrangements: with family Occupation/Education: retired Spiritual care concerns: No Meds Home Medications and Allergies Home Medications Medication Instructions Recorded Confirmed Type citalopram 20 mg tablet 20 mg PO DAILY 03/10/19 07/21/23 History multivitamin (Daily Multi-Vitamin 1 tablet PO DAILY 03/10/19 07/21/23 History tablet) atenolol 25 mg tablet 25 mg PO DAILY 02/14/20 07/21/23 History ezetimibe 10 mg tablet 10 mg PO DAILY 02/18/21 07/21/23 History levothyroxine 25 mcg capsule 50 mcg PO DAILY 02/18/21 07/21/23 History aspirin 81 mg chewable tablet 81 mg PO DAILY@0800 #30 tabs 01/25/23 07/21/23 Rx (Children's Aspirin) atorvastatin 40 mg tablet 40 mg PO DAILY #30 tabs 01/25/23 07/21/23 Rx Allergies Allergy/AdvReac Type Severity Reaction Status Date / Time No Known Allergies Allergy Verified 08/04/23 06:32 Vital Signs Vital Signs - 24 hr 08/04/23 06:33 Temperature 97.5 F L Pulse Rate 57 L Respiratory Rate 16 Blood Pressure 151/71 H Pulse Oximetry 98 Oxygen Delivery Room Air Exam Const: General: comfortable and no acute distress HENMT: Face/Nose/Sinus: Normal nares present Eyes: General: appearance normal, both eyes and all related structures Neck: Neck: no JVD Resp: Auscultation: clear to auscultation bilaterally Cardio: Rate: regular rate Rhythm: regular rhythm GI: Inspection: non-distended GI Palp: Yes Soft to palpation Skin: General skin exam: normal color Neuro: General: gait normal Speech: normal speech Extrem: General: normal to inspection Psych: Mental Status: mental status grossly normal Assessment and Plan Assessment and plan (1) Colon cancer screening: Code(s): Z12.11 - Encounter for screening for malignant neoplasm of colon Status: Acute Assessment and Plan: colonoscopy
[2023-08-04 07:44] VITALS: BP 109/54; PULSE 53; RESP 18; O2SAT 96
[2023-08-04 07:54] VITALS: BP 102/60; PULSE 50; RESP 17; O2SAT 97
[2023-08-04 08:06] VITALS: BP 130/64; PULSE 54; RESP 21; O2SAT 96
== END 2023-08-04 08:22 | disposition home or self-care (01) ==
PROVIDERS: PCP Family Medicine; Visit Provider Internal Medicine Gastroenterology
PROC: 0DJD8ZZ Inspection of Lower Intestinal Tract, Via Natural or Artificial Opening Endoscopic (ICD-10-PCS; CPT 45378; principal; 2023-08-04 07:30)
DX: Z12.11 Encounter for screening for malignant neoplasm of colon (principal); R21 Rash and other nonspecific skin eruption; Z85.048 Personal history of other malignant neoplasm of rectum, rectosigmoid junction, and anus; I10 Essential (primary) hypertension; Z86.73 Personal history of transient ischemic attack (TIA), and cerebral infarction without residual deficits; Z79.82 Long term (current) use of aspirin
CPT/HCPCS: G0105; J2704; J7120

== ENCOUNTER 2023-10-02 13:55 | Outpatient (CLI) | payer MEDICARE, SELFPAY ==
--- NOTE | ~2023-10-02 | MM_ITS ---
EXAMINATION: MM screening valery BI w jacqueline HISTORY: Screening TECHNIQUE: Craniocaudal and mediolateral oblique 3-D tomosynthesis images were obtained and synthetic 2-D images were generated. CAD analysis was submitted and interpreted. COMPARISON: Comparison to multiple prior studies sequentially, with oldest reviewed study dated 07/24. BREAST PARENCHYMAL COMPOSITION: Dense: The breasts are extremely dense, which lowers the sensitivity of mammography. FINDINGS: There is no evidence of suspicious mass, calcification, or architectural distortion to sugg est malignancy in either breast. There has been no suspicious interval change. IMPRESSION: 1. No mammographic evidence of malignancy. 2. Recommend routine screening mammography in one year. BI-RADS Category 1: Negative Reviewed, dictated and finalized at location B.
== END 2023-10-02 13:56 | disposition home or self-care (01) ==
LOC: ANHIMG 13:56
PROVIDERS: PCP Family Medicine; Visit Provider Obstetrics & Gynecology
DX: Z12.31 Encounter for screening mammogram for malignant neoplasm of breast (principal)
CPT/HCPCS: 77063; 77067

== ENCOUNTER 2024-04-18 15:57 | Outpatient (CLI) | payer MEDICARE, SELFPAY ==
--- NOTE | ~2024-04-18 | CT_ITS ---
EXAMINATION: CT brain wo con DATE: 04/18/2024 16:25 INDICATION: Facial trauma . TECHNIQUE: Computed tomography (CT) of the head was performed without intravenous contrast. The mA wa s adjusted according to patient size. Iterative reconstruction technique was employed. The dose-lengt h product was 605.33 mGy-cm. COMPARISON: MRI brain 01/24/2023. FINDINGS: No acute intracranial hemorrhage or extra-axial fluid collection. No hydrocephalus, mass, or herniation. No acute ischemic infarct. Unremarkable dural venous sinus attenuation. No acute osseous abnormality. The aerated spaces are clear. Moderate atrophy and mild chronic white matter change. Atherosclerotic intracranial calcification. Le ft lens replacement. Left basal ganglia calcification. Right. IMPRESSION: No acute intracranial process. Reviewed, dictated and finalized at location K. MINATION WORKER
--- NOTE | ~2024-04-18 | CT_ITS ---
CT facial bones wo con Ordering provider: Marika Baltazar, HEIKE History: . Facial trauma . Comparison: None. Technique: Thin slice axial CT of the facial bones was performed without contrast. Coronal and sagit jody reformatted images were also obtained. . Automated exposure control and iterative reconstruction technique were employed. The dose-length product was 289.57 mGy-cm. FINDINGS: PARANASAL SINUSES: Well aerated. BONES: No facial fracture including no nasal bone fracture. ORBITS AND SUPERFICIAL SOFT TISSUES: The optic globes and orbits are normal. The superficial soft tis sues are normal. VISUALIZED MASTOIDS: Well aerated. LIMITED VISUALIZED BRAIN PARENCHYMA: Normal. IMPRESSION: No facial fracture. Reviewed, dictated and finalized at location A. CRANE OPERATOR IMPRESSION: No facial fracture.
== END 2024-04-18 15:58 | disposition home or self-care (01) ==
PROVIDERS: PCP Family Medicine; Visit Provider Nurse Practitioner
DX: S02.609A Fracture of mandible, unspecified, initial encounter for closed fracture (principal); S06.0XAA Concussion with loss of consciousness status unknown, initial encounter; W19.XXXA Unspecified fall, initial encounter
CPT/HCPCS: 70450; 70486

== ENCOUNTER 2024-05-13 10:35 | Outpatient (CLI) | payer MEDICARE, SELFPAY ==
--- NOTE | ~2024-05-13 | MR_ITS ---
EXAMINATION: MR brain/brain stem wo con DATE: 05/13/2024 11:29 INDICATION: Normal pressure hydrocephalus. TECHNIQUE: Magnetic resonance imaging (MRI) of the brain and brainstem was performed without intraven ous contrast. COMPARISON: Head CT 04/18/2024 FINDINGS: There is a focus of old microhemorrhage in the left parietal lobe. There are scattered area s of nonspecific increased T2-weighted signal intensity in the cerebral white matter and edith. There is no acute ischemic infarct or abnormal mass lesion. The lateral and third ventricles are dilated ou t of proportion to the size of the sulci. There is mild mucosal thickening in the ethmoid sinuses. Th ere are likely changes of left ocular lens replacement surgery. The mastoid air cells are normal. IMPRESSION: 1. Mild nonspecific cerebral white matter disease and pontine disease, which likely represents chroni c small vessel ischemic disease. 2. Dilated lateral and third ventricles. Correlate clinically for normal pressure hydrocephalus. Reviewed, dictated and finalized at location A. HER ADJUSTER IMPRESSION: 1. Mild nonspecific cerebral white matter disease and pontine disease, which randy damon represents chronic small vessel ischemic disease. 2. Dilated lateral and third ventricles. Correlate clinically for normal pressu re hydrocephalus.
--- OUTSIDE RECORDS SUMMARY | 2024-05-19 06:30 | XMS_ITS | Clinical Summary ---
Author Organization [facility] Address [address] [place] [address] Phone Care Team Providers Care Duty Officer Name Role Phone Lane Gunn MD Primary Care Provider [phone] Allergies No known active allergies Medications citalopram (CeleXA) 20 mg tablet Take 20 mg by mouth daily at bedtime. Active atenolol (TENORMIN) 12.5 mg Tablet Take 12.5 mg by mouth daily. Active Flaxseed Oil Oil by Misc.(Non-D rug; Combo Route) route. Active omega-3 fatty acids (FISH OIL ORAL) Take by mouth. Active vitC/E/Zn/copper /lutein/zeaxan (ICAPS AREDS2 ORAL) Take by mouth. Active MULTIVITAMIN ORAL Take by mouth. Active calcium carbonate/vitami n D3 (CALCIUM 500 + D ORAL) Take by mouth. Active GARLIC EXTRACT ORAL Take by mouth. Active amLODIPine (NORVASC) 5 mg tablet Take 5 mg by mouth daily. 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 Gender Identity Not on file Sexual Orientation Not on file Last Filed Vital Signs Vital Sign Reading Time Taken Comments Blood Pressure 114/80 04/21/2019 1:50 PM PANAMA HAT HYDRAULIC PRESS OPERATOR Pulse - - Temperature - - Respiratory Rate - - Oxygen Saturation - - Inhaled Oxygen Concentration - - Weight 59.4 kg (131 lb) 04/21/2019 1:50 PM PANAMA HAT HYDRAULIC PRESS OPERATOR Height 154.9 cm (5' 1 ) 04/21/2019 1:50 PM PANAMA HAT HYDRAULIC PRESS OPERATOR Body Mass Index 24.75 04/21/2019 1:50 PM PANAMA HAT HYDRAULIC PRESS OPERATOR Plan of Treatment Health Maintenance Due Date Last Done Comments DTAP/TDAP/TD VACCINES (1 - Tdap) 1969 COLORECTAL SCREENING 1995 Colorectal Cancer Screening 1995 FIT-DNA Q 3 years 1995 FIT/FOBT Q 1 year 1995 Flex Sig/CT Colonography Q 5 years 1995 PNEUMOCOCCAL VACCINE 65+ YEA RS (1 of 1 - PCV) 01/27/2000 ZOSTER VACCINE (1 of 2) 01/27/2000 OSTEOPOROSIS SCREENING 2015 BREAST CANCER SCREENING 03/15/2020 03/15/20 19, 03/08/2018, 04/03/2015, Additional history exists INFLUENZA VACCINE (#1) 2023 RSV VACCINE (60+ or ) (1 - 1-dose 75+ series) 2025 Procedures Procedure Name Priority Date/Time Associated Diagnosis Comments MAMMO DIAG BILAT 3D GUICHO W O R WO CAD Routine 03/15/2019 from Last 3 Months or Most Recently Relevant to Health Maintenance Results * MAMMO DIAG BILAT 3D GUICHO W OR WO CAD (03/15/2019) Anatomical Region Laterality Modality Breast Bilateral Other us Abstract Provider MAMMO ORDERABLES Edited Result - Final from Last 3 Months or Most Recently Relevant to Health Maintenance Care Teams Duty Officer Relationship Specialty Start Date End Date Lane Gunn MD [facility] [place] [address] PCP - General Family Practice 04/21/19
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
--- OUTSIDE RECORDS SUMMARY | 2024-05-19 06:30 | XMS_ITS | Encounter Summary ---
Author Organization [employer] Address [address] [place] [address] Care Team Providers Care [employer] Caser Name Role Phone Lane Gunn MD Primary Care Provider [phone] Encounter Details Date Type Department Care Team (Latest Contact Info) Description 03/30/2000 Outpatient Historical [facility] Conversion, History Other screening mammogram (Primary Dx) Social History Tobacco Use Types Packs/Day Years Used Date Smoking Tobacco: Never Assessed Comments Unknown Sex and Gender Information Value Date Recorded Sex Assigned at Not on file Legal Sex Female 3:22 AM [employer] Gender Identity Not on file Sexual Orientation Not on file documented as of this encounter Plan of Treatment Not on file documented as of this encounter Visit Diagnoses Diagnosis Other screening mammogram- Primary documented in this encounter Care Teams [employer] Caser Relationship Specialty Start Date End Date Lane Gunn MD [facility] [place] [address] PCP - General Family Practice 04/21/19 documented as of this encounter
== END 2024-05-13 10:36 | disposition home or self-care (01) ==
PROVIDERS: PCP Family Medicine; Visit Provider Nurse Practitioner
DX: R90.82 White matter disease, unspecified (principal)
CPT/HCPCS: 70551

== ENCOUNTER 2024-10-13 15:48 | Outpatient (CLI) | payer MEDICARE, SELFPAY ==
--- NOTE | ~2024-10-13 | MM_ITS ---
EXAMINATION: MM screening valery BI w jacqueline HISTORY: Screening TECHNIQUE: Craniocaudal and mediolateral oblique 3-D tomosynthesis images were obtained and synthetic 2-D images were generated. CAD analysis was submitted and interpreted. COMPARISON: Comparison to multiple prior studies sequentially, with oldest reviewed study dated 02/25. BREAST PARENCHYMAL COMPOSITION: Dense: The breasts are heterogeneously dense, which may obscure small masses FINDINGS: There is no evidence of suspicious mass, calcification, or architectural distortion to sugg est malignancy in either breast. There has been no suspicious interval change. IMPRESSION: 1. No mammographic evidence of malignancy. 2. Recommend routine screening mammography in one year. BI-RADS Category 1: Negative Reviewed, dictated and finalized at location A.
--- OUTSIDE RECORDS SUMMARY | 2024-10-13 15:53 | XMS_ITS | Data Portability ---
Author Organization [place] [facility], Main Office Address [address] [place] [address] Care Team Providers Care Cinnamon Grinder Name Role Phone SIA ASTUDILLO Primary Care Provider SIA ASTUDILLO Referring Provider [phone] Assessment Encounter Date Assessment Date Assessment LastModified by Organization Details LastModified Time 12/01/2022 12/01/2022 Patient will presents multiple complaints. She has knee pain left. She has had 3 or 4 falls over the past year so the last in [place] she has most of her pain is [...] in a month for follow-up for shoulder. [email or web address] Not available 01/01/2023 09:40:32 01/06/2023 01/06/2023 Patient [...] help us and scope her knee discussed. [email or web address] Not available 01/06/2023 14:34:44 01/20/2023 01/20/2023 72-year-old [...] referral - EVAL AND TREAT 2022 023 [email or web address] [facility] [place] [facility], [address], [place], [address], 07:41:09 Procedures injection/a spiration joint/bursa (PROC) - in office procedure, administere d by provider 2022 023 [email or web address] In-Office Order, Internal Use Only DO Not Attach Compendium DO Not Attach Compendium, Do Not Delete/merge, [id number] 3 11:09:50 injection/a spiration joint/bursa (PROC) - in office procedure, administere d by provider 2022 023 [email or web address] In-Office Order, Internal Use Only DO Not Attach Compendium DO Not Attach Compendium, Do Not Delete/merge, 11:09:49 Surgeries None recorded. Imaging MRI, knee, w/o contrast 2022 023 [email or web address] [facility] [place], [address], [place], [address], 3 17:32:36 XR, knee 2022 023 [email or web address] [facility] [place], [address] [facility] [address], [place], [address], 3 11:31:35 Medication Orders diclofenac sodium 75 mg tablet,wilbert yed release 2022 023 yvette [address] [facility], [address] [facility], [place], [place], [id number], 3 09:35:29 Kenalog 10 mg/mL suspension for injection 2022 023 yvette [facility]172, [address] [place], [place], [id number], 3 11:12:04 ropivacaine (PF) 5 mg/mL (0.5 %) injection solution 2022 023 [facility] [address] [facility] #32339, [address] [place], [place], [id number], 3 11:12:04 Kenalog 10 mg/mL suspension for injection 2022 023 [facility] [address] [facility] #88430, [address] [place], [place], [id number], 3 11:12:04 ropivacaine (PF) 5 mg/mL (0.5 %) injection solution [address] [facility]71374, [address] [place], [place], [id number], 3 11:12:04 Patient TargetsNo targets recorded. Patient InstructionsNo instructions recorded. Reason for Referral Physical Therapist Referral for Tear of medial meniscus of knee EVAL AND TREAT Referring Physician: Sia Lechuga, Orthopedic Surgery, Encounter Date: 01/20/2023 Results Created Date Observation Date Name Description Value Unit Range Abnormal Flag Note LastModifiedBy Organization Detail LastModifiedTime 12/02/19 23 XR, knee No observ ation record ed. [email or web address] [facility] [place] [address], [place], [address], 12/01/2022 11:13:07 01/07/20 23 MRI knee lt wo [facility] [address] [place] [address] Patien t Name: NEDRA Denton LIZZETTE Access ion #: [id number] Sex: F : 1949 9 Dictat [...] . Linear PD hyperi ntense signal in family and consumer science professor ior horn of medial menisc us extend [...] eviden ce of tear. Fibers of the family and consumer science professor ior crucia te ligame nts are well visual ized and appear intact . Medial and latera l collat eral ligame nts appear normal . Megan ceps and patell ar tendon s appear unrema rkable . IMPRES ARI: Page 1 [facility] [address] [place], [place] [address] Patien t Name: LIZZETTE HOOKS Access ion #: [id number] Sex: F : 1949 9 Dictat ed By: Lauro Diaz Attend ing Physic genoveva: Zander Physic genoveva: RAY MAYS Exam Date: 2022 07:07 AM Exam Name: MRI KNEE LT WO Admitt ing Diagno sis(es ): 1. PD hyperi ntense signal seen in anteri or crucia te ligame nt sugges tive of sprain . 2. Linear PD hyperi ntense signal in family and consumer science professor ior horn of medial menisc us extend [...] Date/T tasha: 023 11:31 AM Page [email or web address] [place] [address] (Imaging) [address] [place], [address], 01/06/2023 11:02:12 Result Notes None recorded. Problems Name Problem SNOMED Code Status Onset Date Resolution Date Notes Provider Name and Address Organization Details Recorded Time Pain of left knee joint 7600462444434 07 Active 2022 RUPAL Hunter null, [place] [facility] [employer] 3 10:22:05 Pain of left shoulder joint 6097816061450 9109 Active 2022 Ricarda Mckenzie CNA null, [place] [facility] 3 11:07:21 Chondromala hiro of right patella 6018989908628 9108 Active 2022 Ray Castro MD [address] [facility], [facility] [address], [place], [address], Blood cell Storage [employer] [facility] 3 11:13:15 Tendinitis of right rotator cuff 1309946761806 9104 Active 2022 Ray Castro MD [address] [facility], [facility] [address], [place], [address], Blood cell [employer] [facility] 3 11:13:20 Tear of medial meniscus of knee 645627641 Active 2022 Ray Castro MD [address] [facility], [facility] [address], [place], [address], Blood cell Storage [employer] [facility] 3 09:40:59 Problem Notes None recorded. Procedures Surgical History Date Name Laterality Status Provider Name and Address Organization Details Recorded Time 3 Ortho - Cortisone Injection completed Ray Castro MD [address] [facility], [facility] [address], [place], [address], [employer] [facility] 12/01/2022 11:07:10 section completed RUPAL Hunter Blood cell Storage [facility] [employer] [facility] 12/01/2022 10:21:10 Imaging Results None recorded. Procedure Notes None recorded. Medical Equipment None [...] mouth once a day for 1 day 2022 active Not Available Not Available Not Avai [...] 20 mg by injection route. 2022 active [facility]: 0003- 0494- 20 Not Available Not Available [...] 20 mg by injection route. 2022 active [facility] 51960 -064- 01 Not Available Not Available Not Available Vitals Date Recorded Body height Body mass index (BMI) Body weight Provider Name and Address Organization Details Last Updated DateTime 12/01/2022 154.94 cm 25.1 kg/m2 56326.79 g Miriam Bauer Hali [facility] [employer] 12/01/2022 10:20:04 Date Recorded Body height Body mass index (BMI) Body weight Provider Name and Address Organization Details Last Updated DateTime 01/01/2023 154.94 cm 25.5 kg/m2 97411.97 g Ricarda SHAY Mckenzie [facility] 01/01/2023 09:25:13 Date Recorded Body height Body mass index (BMI) Body weight Provider Name and Address Organization Details Last Updated DateTime 01/06/2023 154.94 cm 25.1 kg/m2 96451.79 g Miriam Juancarlos Hali [facility] [employer] [facility] 01/06/2023 14:26:38 Date Recorded Body height Body mass index (BMI) Body weight Provider Name and Address Organization Details Last Updated DateTime 01/20/2023 154.94 cm 25.1 kg/m2 01178.79 g Nellie Murillo, ATC L [facility] 01/20/2023 10:07:00 Social History None recorded. Functional Status None recorded. Mental Status None recorded. Family History Nothing Reported. Medical History Condition Response CANCER: SPECIFY Y Gynecological HistoryNo gynecological history recorded. Obstetrics History GPAL:G 0 P 0 0 0 0 Past Encounters Encounter ID Performer Location Encounter Start Date Encounter Closed Date Diagnosis/Indication Diagnosis SNOMED-CT Code Diagnosis ICD10 Code Diagnosis Note [id number] Ray Castro MD [facility] [place] [address] [place] [address] 12/01/2022 09:53:50 12/01/2022 11:31:35 Pain of left knee joint 1280161720 31521 M25.562 Pain of le ft shoulder joint 2457625117 4001174 M25.512 Chondromal acia of right patella 8630074926 4119260 M22.41 Tendinitis of right rotator cuff 4605337912 3440519 M67.813 [id number] Ray Castro MD [facility] [place] [address] [place] [address] 01/01/2023 09:22:06 01/01/2023 09:58:47 Pain of left shoulder joint 3843452008 9240376 M25.512 Pain of le ft knee joint 1791521848 59186 M25.562 Tear of me dial meniscus of knee 519865079 S83.242A [id number] Ray Castro MD [facility] [place] [address] [place] [address] 01/06/2023 14:21:34 01/06/2023 14:45:03 Pain of left shoulder joint 3962912774 0006805 M25.512 Tear of me dial meniscus of knee 116228690 S83.242A [id number] Sia Lechuga MD [facility] [place] [address] [place] [address] 01/20/2023 10:02:07 01/20/2023 10:37:39 Pain of left knee joint 6849930705 77804 M25.562 Tear of me dial meniscus of knee 002784723 S83.242A Health Concerns Section Related Observation LastModified by Organization Detai ls LastModified Time None Recorded Concern Status LastModified by Organization Details LastModified Time None Recorded Advance Directives Directive None Recorded Payers Insurance Date Sequence Insurance Name Policy Number Policy Martins Covered Member ID Martins Member ID Guarantor Name 01/17/2023 1 [facility] (MEDICARE REPLACEMENT/A DVANTAGE - PPO) [id number] Lizzette Adamson [id number] Lizzette Adamson Notes Date Note Type Note Provider Name and Address Organization Details Recorded Time 12/01/2022 text/html Patient presents knee pain left. She has had multiple falls in her left knee and has pain primarily anteriorly but also medially. She states her latest holes [facility] in [place] and she had a fair bit of bruising when she fell. She does have some catching in the knee and some mechanical symptoms. She also complains of shoulder pain left. She has pain with overhead activity and pain when she lays on it denies any neck or radicular symptoms. Ray Castro MD [address], [place], [address], [employer] 12/01/2022 11:13:51 01/01/2023 text/html Patient returns status [...] are good. Ray Castro MD [address], [place], [address], [employer] 01/01/2023 09:41:32 01/06/2023 text/html Patient returns status [...] are good. Ray Castro MD [address], [place], [address], [employer] 01/06/2023 14:35:28 OBGyn Episode No OBEpisode recorded.
--- OUTSIDE RECORDS SUMMARY | 2024-10-13 15:53 | XMS_ITS | Encounter Summary ---
Author Organization [facility] Address 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
--- OUTSIDE RECORDS SUMMARY | 2024-10-13 15:53 | XMS_ITS | Clinical Summary ---
Author Organization [facility] [place] Address [address] [place] [address] Phone Care Team Providers Care Branch Manager Name Role Phone Lane Gunn MD Primary Care Provider [phone] Allergies No known active allergies Medications citalopram [...] on file Legal Sex Female 3:22 AM [employer] Gender Identity Not on file Sexual Orientation Not on file Last Filed Vital Signs Vital Sign Reading Time Taken Comments Blood Pressure 114/80 04/21/2019 1:50 PM [facility] [employer] Pulse - - Temperature - - Respiratory Rate - - Oxygen Saturation - - Inhaled Oxygen Concentration - - Weight 59.4 kg (131 lb) 04/21/2019 1:50 PM [facility] Height 154.9 cm (5' 1) 04/21/2019 1:50 PM [facility] Body Mass Index 24.75 04/21/2019 1:50 PM [facility] [facility] Plan of Treatment Health Maintenance Due Date Last Done Comments DTAP/TDAP/TD VACCINES (1 - Tdap) 1969 COLORECTAL SCREENING 1995 Colorectal Cancer Screening 1995 FIT-DNA Q 3 years 1995 FIT/FOBT Q 1 year 1995 Flex Sig/CT Colonography Q 5 years 1995 PNEUMOCOCCAL VACCINE 50+ YEA RS (1 of 1 - PCV) 01/27/2000 ZOSTER VACCINE (1 of 2) 01/27/2000 OSTEOPOROSIS SCREENING 2015 BREAST CANCER SCREENING 03/15/2020 03/15/20 19, 03/08/2018, 04/03/2015, Additional history exists INFLUENZA VACCINE (#1) 2023 RSV VACCINE (60+ or ) (1 - 1-dose 75+ series) 2025 Procedures Procedure Name Priority Date/Time Associated Diagnosis Comments MAMMO 3D GUICHO DIAGNOSTIC LILLY AT W OR WO CAD Routine 03/15/2019 from Last 3 Months or Most Recently Relevant to Health Maintenance Results * MAMMO DIAG BILAT 3D GUICHO W OR WO CAD (03/15/2019) Anatomical Region Laterality Modality Breast Bilateral Mammography us Abstract Provider MAMMO ORDERABLES Edited Result - Final from Last 3 Months or Most Recently Relevant to Health Maintenance Care Teams Branch Manager Relationship Specialty Start Date End Date Lane Gunn MD [facility] [place] [address] PCP - General Family Practice 04/21/19
== END 2024-10-13 15:49 | disposition home or self-care (01) ==
LOC: ANHIMG 15:51
PROVIDERS: PCP Family Medicine; Visit Provider Nurse Practitioner
DX: Z12.31 Encounter for screening mammogram for malignant neoplasm of breast (principal)
CPT/HCPCS: 77063; 77067